=== PATIENT | female | born 1945 | race Caucasian/White ===

== ENCOUNTER 2021-09-29 10:16 | Emergency (ER) | payer MEDICARE, OTHER ==
[~2021-09-29] VITALS: Ht 162.6 cm; Wt 88.5 kg
[~2021-09-29 10:16] MED LIST: ASPIR 8181 MG; CALCIUM + D3 E1 EACH PO; SYNTHROID50 MCG PO
[2021-09-29] MEDS ORDERED: GABAPENTIN300 MG PO (10:28)
[2021-09-29] MEDS ORDERED: VALTREX1000 MG PO (10:28)
[2021-09-29] MEDS ORDERED: BRIMONIDINE TART5 ML (10:32)
[2021-09-29] MEDS ORDERED: METFORMIN HCL500 M1 PO (10:33)
[2021-09-29] MEDS ORDERED: ATORVASTATIN CA20 MG PO (10:33)
[2021-09-29] MEDS ORDERED: LEVOTHYROXINE88 MCG PO (10:33)
[2021-09-29] MEDS ORDERED: LATANOPROST2.5 ML OPTH (10:33)
== END 2021-09-29 10:39 | disposition home or self-care (01) ==
LOC: ED 10:16
DX: B02.9 Zoster without complications (principal); Z88.2 Allergy status to sulfonamides; Z79.82 Long term (current) use of aspirin; Z79.899 Other long term (current) drug therapy
CPT/HCPCS: 99282